=== PATIENT | female | born 1940 | race Caucasian/White ===

== ENCOUNTER 2023-12-25 00:51 | Inpatient (IN) | payer MEDICARE, BC ==
[2023-12-25] MEDS ORDERED: Ondansetron PF 4 MG/2 ML Vial IVP PRN (01:21)
[2023-12-25] MEDS ORDERED: Guaifenesin DM 100-10/5 ML UDCUP PO PRN (01:21)
[2023-12-25 01:59] LABS: Bilirubin Neg (Negative); Blood, Urine 10 (Negative); Glucose, Urine (Dipstick) Normal (Negative); Ketone, Urine 15 mg/dL (Negative); Leukocyte Negative (Negative); Nitrite Negative (Negative); Protein, Urine (Dipstick) 15 mg/dl (Neg-Trace); Specific Gravity, Urine 1.015 (1.005-1.030)
[2023-12-25] MEDS: Acetaminophen 325 MG TAB PO PRN (02:01)
[2023-12-25] MEDS: diphenhydrAMINE 25 MG CAP PO SCH (02:02)
[2023-12-25] MEDS: Lactated Ringer's 500 ML IV SCH (02:03)
[2023-12-25 02:08] LABS: Clarity Clear (Clear)
[2023-12-25 02:09] VITALS: BMI 24.1
[2023-12-25 02:09] LABS: Bacteria/HPF Rare-Few HPF (None Seen); RBC/HPF 0-3 HPF (0-3); Squamous Epithelial 0-3 HPF (0-3); WBC/HPF 0-3 HPF (0-3)
[2023-12-25 04:21] LABS: #Basophils 0.03 10x3/uL (0.0-0.2); #Monocytes 0.66 10x3/uL (0.0-1.1); %Basophils 0.3 % (0.0-2.0); %Lymphocytes 5.4 % (18.0-47.0); %Monocytes 6.2 % (0.0-10.0); %Neutrophils 87.8 % (40.0-75.0); Hematocrit 35.1 % (34.9-44.5); Hemoglobin 11.4 g/dL (12.0-15.5); Mean Corpuscular HGB CONC 32.5 g/dL (32.0-36.0); Mean Corpuscular Hemoglobin 31.8 pg (27.0-33.0); Platelet Count 161 10x3/uL (150-450); RBC Distribution Width 13.1 % (11.5-14.5); Red Blood Cell (RBC) Count 3.58 10x6/uL (3.90-5.03); White Blood Cell (WBC) Count 10.7 10x3/uL (3.5-10.5)
[2023-12-25 04:47] LABS: Anion Gap 13 mmol/L (10-20); BUN (Urea Nitrogen) 17 mg/dL (9.8-20.1); Calc. Creatinine Clearance 62 mL/min (70-130); Calcium 8.6 mg/dL (7.8-10.44); Carbon Dioxide 22 mmol/L (23-31); Chloride 107 mmol/L (98-107); Estimated GFR 73; Glucose 148 mg/dL (83-110); Potassium 3.8 mmol/L (3.5-5.1); Sodium 138 mmol/L (136-145); Troponin I Less than 0.010 ng/mL (< 0.028)
[2023-12-25] MEDS: Aspirin 81 mg Enteric Coated Tablet PO SCH (09:25)
[2023-12-25] MEDS: Anastrozole 1 MG TAB PO SCH (09:25)
[2023-12-25] MEDS: Multivit, Therapeutic 1 TAB PO SCH (09:25)
[2023-12-25] MEDS: Famotidine 20 MG TAB PO SCH (09:26)
[2023-12-25] MEDS: Amlodipine 5 MG TAB PO SCH (09:26)
[2023-12-25] MEDS: Enoxaparin 40 MG (0.4 mL) SYRINGE SC SCH (09:28)
[2023-12-25] MEDS: Potassium Chloride 20 MEQ TAB PO SCH (09:43)
[2023-12-25] MEDS: Calcium Carbonate 500 MG ChewTAB PO PRN (12:18)
[2023-12-25] MEDS: Rosuvastatin 10 MG TAB PO SCH (20:47)
[2023-12-26 03:51] LABS: Hematocrit 35.1 % (34.9-44.5); Hemoglobin 11.8 g/dL (12.0-15.5); Mean Corpuscular HGB CONC 33.6 g/dL (32.0-36.0); Mean Corpuscular Hemoglobin 32.5 pg (27.0-33.0); Mean Corpuscular Volume 96.7 fL (81.6-98.3); Mean Platelet Volume 11.3 fL (7.4-10.4); Platelet Count 162 10x3/uL (150-450); RBC Distribution Width 13.2 % (11.5-14.5); Red Blood Cell (RBC) Count 3.63 10x6/uL (3.90-5.03); White Blood Cell (WBC) Count 8.9 10x3/uL (3.5-10.5)
[2023-12-26 04:04] LABS: Anion Gap 13 mmol/L (10-20); BUN (Urea Nitrogen) 12 mg/dL (9.8-20.1); Calc. Creatinine Clearance 66 mL/min (70-130); Calcium 9.1 mg/dL (7.8-10.44); Carbon Dioxide 23 mmol/L (23-31); Chloride 106 mmol/L (98-107); Estimated GFR 79; Glucose 95 mg/dL (83-110); Potassium 3.9 mmol/L (3.5-5.1); Sodium 138 mmol/L (136-145)
[2023-12-26] MEDS: traMADol HCl 50 MG TAB PO PRN (04:32)
[2023-12-26] MEDS: Amlodipine 5 MG TAB PO SCH (09:36)
[2023-12-26] MEDS: Fioricet 325/50/40 mg Tablet PO SCH (09:38)
[2023-12-26] MEDS ORDERED: diphenhydrAMINE 25 MG in Sodium Chloride 0.9% 50 ML IVPB SCH (13:45)
[2023-12-26] MEDS ORDERED: diphenhydrAMINE 50 MG/ML VIAL IVP SCH (15:30)
[2023-12-26] MEDS: diphenhydrAMINE 50 MG/ML VIAL IVP SCH (15:38)
[2023-12-26] MEDS: Prochlorperazine 10 MG/2 ML VIAL IVP SCH (15:39)
[2023-12-27 08:39] VITALS: BP 134/67; TEMP 98.4
[2023-12-27] MEDS: Amlodipine 5 MG TAB PO SCH (08:40)
== END 2023-12-27 10:48 | disposition home or self-care (01) | DRG 312 ==
LOC: CSHTELE 00:51 → OBSVTOIN 12-26 15:02
PROVIDERS: ADMIT Student in an Organized Health Care Education/Training Program; ATTEND Student in an Organized Health Care Education/Training Program
DX: I95.1 Orthostatic hypotension (principal); I10 Essential (primary) hypertension; E78.5 Hyperlipidemia, unspecified; I73.9 Peripheral vascular disease, unspecified; Z66 Do not resuscitate; Z90.49 Acquired absence of other specified parts of digestive tract; Z90.89 Acquired absence of other organs; Z98.890 Other specified postprocedural states; Z79.899 Other long term (current) drug therapy; Z79.82 Long term (current) use of aspirin; S09.90XA Unspecified injury of head, initial encounter; Z95.0 Presence of cardiac pacemaker; W01.10XA Fall on same level from slipping, tripping and stumbling with subsequent striking against unspecified object, initial encounter
CPT/HCPCS: 36415; 70450; 70486; 70551; 71045; 72125; 80048; 80053; 81001; 83735; 84439; 84443; 84484; 85025; 85027; 85610; 85730; 93005; 93010; 93306; 94760; 96372; 96374; G0378; J0780; J1200; J1650; J2405; J7120

== ENCOUNTER 2024-02-07 17:38 | Emergency (ER) | payer MEDICARE, BC ==
[2024-02-07] MEDS ORDERED: Acetaminophen 325 MG TAB ONE (18:12)
== END 2024-02-07 19:00 | disposition home or self-care (01) ==
LOC: CSHERS 17:38
DX: S09.90XA Unspecified injury of head, initial encounter (principal); Y92.89 Other specified places as the place of occurrence of the external cause; I10 Essential (primary) hypertension; W01.0XXA Fall on same level from slipping, tripping and stumbling without subsequent striking against object, initial encounter
CPT/HCPCS: 70450; 72125